=== PATIENT | female | born 1950 | race Caucasian/White ===

== ENCOUNTER 2017-05-13 21:52 | Emergency (ER) | payer OTHER, MEDICAID ==
[~2017-05-13] VITALS: Ht 154.9 cm; Wt 68.0 kg
[2017-05-13 21:52] VITALS: BP_SYST 118
[~2017-05-13 21:52] MED LIST: ASPI81TA2 PO; FOLIC ACID PO; LEVO150T11 PO; LOVA40TA75 PO; MECL-110 PO; ROPI0.5T2 PO; SULFAMETH PO; TRIMETHOPRIM PO; [UNRECOGNIZED DRUG - CODE] PO
[2017-05-13] MEDS ORDERED: DIPHENHYDRAMINE HCL 12.5 MG/5 ML UDC PO ONE (23:00)
[2017-05-13 23:33] VITALS: BP_SYST 118
== END 2017-05-13 23:33 | disposition home or self-care (01) ==
LOC: SED 21:52
DX: T80.62XA Other serum reaction due to vaccination, initial encounter (principal); L53.0 Toxic erythema; E78.00 Pure hypercholesterolemia, unspecified; Z86.79 Personal history of other diseases of the circulatory system; Z79.82 Long term (current) use of aspirin; Z88.0 Allergy status to penicillin; Z88.5 Allergy status to narcotic agent
CPT/HCPCS: 99283

== ENCOUNTER 2018-01-16 15:16 | Outpatient (CLI) | payer OTHER, MEDICAID | END 2018-01-16 20:43 | disposition home or self-care (01) | LOC: SMA 15:16 | PROVIDERS: ATTEND Internal Medicine | DX: Z12.31 Encounter for screening mammogram for malignant neoplasm of breast (principal); E78.5 Hyperlipidemia, unspecified; E03.9 Hypothyroidism, unspecified | CPT/HCPCS: 77067 ==

== ENCOUNTER 2018-03-09 09:08 | Outpatient (CLI) | payer OTHER, MEDICAID ==
[~2018-03-09 09:08] MED LIST changes: +ASPI-1155 PO; -ASPI81TA2 PO; +PHEN-880 PO; -[UNRECOGNIZED DRUG - CODE] PO
== END 2018-03-09 20:36 | disposition home or self-care (01) ==
LOC: SUS 09:08
PROVIDERS: ATTEND Internal Medicine
DX: R92.8 Other abnormal and inconclusive findings on diagnostic imaging of breast (principal)
CPT/HCPCS: 76641

== ENCOUNTER 2019-01-18 09:20 | Outpatient (CLI) | payer OTHER, MEDICAID ==
[~2019-01-18 09:20] MED LIST changes: +PHEN-801 PO; -PHEN-880 PO
== END 2019-01-18 20:53 | disposition home or self-care (01) ==
LOC: SMA 09:20
PROVIDERS: ATTEND Internal Medicine
DX: Z12.31 Encounter for screening mammogram for malignant neoplasm of breast (principal)
CPT/HCPCS: 77067

== ENCOUNTER 2019-08-06 11:26 | Emergency (ER) | payer OTHER, MEDICAID ==
[~2019-08-06] VITALS: Ht 160 cm; Wt 66.2 kg
[2019-08-06 11:26] VITALS: BP_SYST 110
--- NOTE | 2019-08-06 11:30 | NUR ---
Patient triaged and placed in waiting room. VSS and patient appears in no acute distress at this time. Accompanied by SELF, awaiting available bed, and MD notified of need for MSE.
--- NOTE | 2019-08-06 12:24 | NUR ---
BROUGHT BACK TO BED #5 AND REPORT GIVEN TO JULIAN
--- NOTE | 2019-08-06 12:30 | NUR ---
pt arrives from home. States she was dx w/ PNA 2 days and is taking prescribed meds, however, has not seen any improvement. Pt is currently afebrile
--- NOTE | 2019-08-06 12:41 | NUR ---
flu collected and sent to the lab
--- NOTE | 2019-08-06 12:45 | NUR ---
ABBIE Johansen at bedside examining patient.
[2019-08-06] MEDS ORDERED: NACL 0.9% 1,000 ML IV ONE (13:00)
[2019-08-06] MEDS ORDERED: KETOROLAC TROMETHAMINE 30 MG VIAL IVP ONE (13:00)
[2019-08-06] MEDS ORDERED: IPRATROPIUM/ALBUTEROL SULFATE 3 ML AMPUL.NEB (DUONEB) INH ONE (13:00)
[2019-08-06 13:15] LABS: BASOPHILS % (AUTO) 0.3 % (0.0-2.0); EOSINOPHILS # (AUTO) 0.1 K/uL (0.0-0.4); EOSINOPHILS % (AUTO) 1.1 % (0.0-4.0); HEMATOCRIT 34.9 % (36-48); HEMOGLOBIN 12.1 g/dL (12.0-16.0); LYMPHOCYTES # (AUTO) 1.6 K/uL (1.0-5.5); LYMPHOCYTES % (AUTO) 16.9 % (20.5-51.5); MEAN CORPUSCULAR HEMOGLOBIN 35 pg (27-31); MEAN CORPUSCULAR HGB CONC 35 % (32-36); MEAN CORPUSCULAR VOLUME 101 fL (79.0-98.0); MONOCYTES # (AUTO) 0.9 K/uL (0.0-1.0); MONOCYTES % (AUTO) 9.4 % (1.7-9.3); NEUTROPHILS # (AUTO) 6.7 K/uL (1.8-7.7); NEUTROPHILS % (AUTO) 72.3 % (40.0-70.0); PLATELET COUNT (AUTO) 192 K/uL (130-430); RED BLOOD CELL COUNT(AUTO) 3.46 MIL/uL (4.2-6.2); RED CELL DISTRIBUTION WIDTH 12.6 % (9.0-15.0); WHITE BLOOD COUNT (AUTO) 9.3 K/uL (4.8-10.8)
[2019-08-06 13:30] LABS: CALCIUM 8.8 mg/dL (8.4-11.0); CREATININE 0.79 mg/dL (0.55-1.30); POTASSIUM 3.2 mmol/L (3.5-5.1)
--- NOTE | 2019-08-06 13:30 | NUR ---
RESTING COMFORTABLY IN BED ON MONITOR, TOLERABLE PAIN LEVEL OF 2. PT VSS NO COMPLAINTS AT THIS TIME
[2019-08-06 13:32] LABS: BILIRUBIN,URINE NEGATIVE (NEGATIVE); BLOOD, URINE NEGATIVE (NEGATIVE); CLARITY/URINE CLEAR (CLEAR); COLOR,URINE YELLOW (YELLOW); GLUCOSE,URINE NEGATIVE (NEGATIVE); KETONES,URINE NEGATIVE (NEGATIVE); LEUKOCYTE ESTERASE ,URINE TRACE (NEGATIVE); NITRITE, URINE NEGATIVE (NEGATIVE); PROTEIN URINE NEGATIVE (NEGATIVE); UROBILINOGEN,URINE 0.2 (0.2-1.0)
[2019-08-06 13:39] LABS: BACTERIA,URINE FEW /HPF (None Seen); RBC,URINE 0-3 /HPF (0-3)
[2019-08-06 13:45] LABS: ALBUMIN 3.1 g/dL (3.4-4.8); TOTAL BILIRUBIN 0.3 mg/dL (0.0-1.0)
[2019-08-06] MEDS ORDERED: OSELTAMIVIR PHOSPHATE 75 MG CAPSULE PO ONE (14:00)
[2019-08-06] MEDS ORDERED: POTASSIUM CHLORIDE 20 MEQ TAB.PRT.SR PO ONE (14:00)
--- NOTE | 2019-08-06 14:55 | NUR ---
Patient given written and verbal discharge instructions and verbalizes understanding. ER MD discussed with patient the results and treatment provided. Patient in stable condition. ID arm band removed. IV catheter removed intact and dressing applied, no active bleeding. Rx of IBUPROFEN AND TAMIFLU given. Patient educated on pain management and to follow up with PMD. Pain Scale 2/10 TOLERABLE. Opportunity for questions provided and answered. Medication side effect fact sheet provided.
[2019-08-06 15:06] VITALS: BP_SYST 113
== END 2019-08-06 14:55 | disposition home or self-care (01) ==
LOC: SED 11:26
DX: J10.1 Influenza due to other identified influenza virus with other respiratory manifestations (principal); I10 Essential (primary) hypertension; E07.9 Disorder of thyroid, unspecified; E78.00 Pure hypercholesterolemia, unspecified; R42 Dizziness and giddiness; Z90.710 Acquired absence of both cervix and uterus; Z86.73 Personal history of transient ischemic attack (TIA), and cerebral infarction without residual deficits; Z79.82 Long term (current) use of aspirin; Z79.899 Other long term (current) drug therapy; Z88.0 Allergy status to penicillin; Z88.6 Allergy status to analgesic agent
CPT/HCPCS: 36415; 71046; 80053; 81000; 83605; 85025; 86710; 87040; 87086; 94640; 96374; 99284; G9035; J1885; J7030; J7620

== ENCOUNTER 2019-08-16 12:26 | Outpatient (CLI) | payer OTHER, MEDICAID | END 2019-08-16 21:23 | disposition home or self-care (01) | LOC: SRD 12:26 | PROVIDERS: ATTEND Internal Medicine | DX: M25.562 Pain in left knee (principal); Z98.890 Other specified postprocedural states | CPT/HCPCS: 73564 ==

== ENCOUNTER 2019-12-17 13:30 | Emergency (ER) | payer OTHER, MEDICAID ==
[~2019-12-17] VITALS: Ht 160 cm; Wt 75.3 kg
[2019-12-17 13:30] VITALS: BP_SYST 131
--- NOTE | 2019-12-17 13:30 | NUR ---
BROUGHT BACK TO BED #4 AND TRIAGED. REPORT GIVEN TO KEN
--- NOTE | 2019-12-17 13:49 | NUR ---
Pt came to ER for MATHEWS rates pain 02/27. [facility]ing in [facility] VSS no distress at this time awaiting
--- NOTE | 2019-12-17 13:53 | NUR ---
ER at bedside examining patient.
[2019-12-17] MEDS ORDERED: KETOROLAC TROMETHAMINE 60 MG/2 ML VIAL IM ONE (14:00)
[2019-12-17] MEDS ORDERED: cefTRIAXone 1 GM VIAL IM ONE (14:00)
--- NOTE | 2019-12-17 14:00 | NUR ---
Pt pain reduced after medication
[2019-12-17 14:38] VITALS: BP_SYST 131
--- NOTE | 2019-12-17 14:39 | NUR ---
Patient given written and verbal discharge instructions and verbalizes understanding. ER MD discussed with patient the results and treatment provided. Patient in stable condition. ID arm band removed. Rx of Naprosyn and Levaquin given. Patient educated on pain management and to follow up with PMD. Pain Scale 0/10. Opportunity for questions provided and answered. Medication side effect fact sheet provided.
== END 2019-12-17 14:39 | disposition home or self-care (01) ==
LOC: SED 13:30
DX: J01.10 Acute frontal sinusitis, unspecified (principal); E78.00 Pure hypercholesterolemia, unspecified; I10 Essential (primary) hypertension; E07.9 Disorder of thyroid, unspecified; Z86.73 Personal history of transient ischemic attack (TIA), and cerebral infarction without residual deficits; Z79.82 Long term (current) use of aspirin; Z79.899 Other long term (current) drug therapy; Z88.0 Allergy status to penicillin; Z88.5 Allergy status to narcotic agent; Z88.6 Allergy status to analgesic agent
CPT/HCPCS: 96372; 99284; J0696; J1885

== ENCOUNTER 2020-12-19 10:00 | Outpatient (CLI) | payer OTHER, MEDICAID ==
[~2020-12-19 10:00] MED LIST changes: -MECL-110 PO; +MECL-160 PO; -ROPI0.5T2 PO; +ROPI0.5T4 PO
== END 2020-12-19 20:37 | disposition home or self-care (01) ==
LOC: SMA 10:00
PROVIDERS: ATTEND Internal Medicine
DX: Z12.31 Encounter for screening mammogram for malignant neoplasm of breast (principal)
CPT/HCPCS: 77067

== ENCOUNTER 2021-10-22 08:27 | Emergency (ER) | payer OTHER, MEDICAID ==
[~2021-10-22] VITALS: Ht 160 cm; Wt 68.0 kg
[2021-10-22 09:56] LABS: BILIRUBIN,URINE NEGATIVE (NEGATIVE); BLOOD, URINE NEGATIVE (NEGATIVE); CLARITY/URINE CLEAR (CLEAR); COLOR,URINE YELLOW (YELLOW); GLUCOSE,URINE NEGATIVE (NEGATIVE); KETONES,URINE NEGATIVE (NEGATIVE); LEUKOCYTE ESTERASE ,URINE NEGATIVE (NEGATIVE); NITRITE, URINE NEGATIVE (NEGATIVE); PROTEIN URINE NEGATIVE (NEGATIVE); UROBILINOGEN,URINE 0.2 (0.2-1.0)
[2021-10-22 10:00] VITALS: BP_SYST 133
[2021-10-22 10:10] LABS: BASOPHILS % (AUTO) 0.6 % (0.0-2.0); EOSINOPHILS # (AUTO) 0.1 K/uL (0.0-0.4); HEMATOCRIT 37.3 % (36-48); HEMOGLOBIN 12.4 g/dL (12.0-16.0); LYMPHOCYTES # (AUTO) 1.2 K/uL (1.0-5.5); LYMPHOCYTES % (AUTO) 25.1 % (20.5-51.5); MEAN CORPUSCULAR HEMOGLOBIN 33 pg (27-31); MEAN CORPUSCULAR HGB CONC 33 % (32-36); MEAN CORPUSCULAR VOLUME 98 fL (79.0-98.0); MONOCYTES # (AUTO) 0.6 K/uL (0.0-1.0); MONOCYTES % (AUTO) 12.8 % (1.7-9.3); NEUTROPHILS # (AUTO) 2.9 K/uL (1.8-7.7); NEUTROPHILS % (AUTO) 59.5 % (40.0-70.0); PLATELET COUNT (AUTO) 186 K/uL (130-430); RED BLOOD CELL COUNT(AUTO) 3.82 MIL/uL (4.2-6.2); RED CELL DISTRIBUTION WIDTH 12.3 % (9.0-15.0); WHITE BLOOD COUNT (AUTO) 4.8 K/uL (4.8-10.8)
[2021-10-22 10:40] LABS: ANION GAP 6 (5-15); CALCIUM 9.3 mg/dL (8.4-11.0); CHLORIDE 104 mmol/L (98-107); CREATININE 0.68 mg/dL (0.55-1.30); GLUCOSE 95 mg/dL (70-99); SODIUM SERUM 139 mmol/L (136-145); UREA NITROGEN, BLOOD 14 mg/dL (8-21)
[2021-10-22 10:53] LABS: ALANINE AMINOTRANSFERASE 15 U/L (12-78); ALBUMIN 3.3 g/dL (3.4-4.8); AMYLASE 169 U/L (0-100); ASPARTATE AMINOTRANSFERASE 18 U/L (10-37); LACTATE DEHYDROGENASE 159 U/L (81-234); LIPASE 186 U/L (73-393); TOTAL BILIRUBIN 0.2 mg/dL (0.0-1.0)
[2021-10-22 11:09] LABS: C-REACTIVE PROTEIN QUANT 1.6 mg/dL (0-0.5)
[2021-10-22] MEDS ORDERED: OMEP20CA15 PO (11:55)
[2021-10-22 12:23] VITALS: BP_SYST 144
== END 2021-10-22 12:23 | disposition home or self-care (01) ==
LOC: SED 08:27
DX: K29.70 Gastritis, unspecified, without bleeding (principal); I10 Essential (primary) hypertension; E78.00 Pure hypercholesterolemia, unspecified; Z88.5 Allergy status to narcotic agent; Z88.0 Allergy status to penicillin; Z79.899 Other long term (current) drug therapy
CPT/HCPCS: 36415; 76376; 80053; 81003; 82150; 83605; 83615; 83690; 84484; 85025; 86140; 99284

== ENCOUNTER 2022-04-30 11:09 | Outpatient (CLI) | payer OTHER, MEDICAID ==
[~2022-04-30 11:09] MED LIST changes: +OMEP20CA15 PO
== END 2022-04-30 19:17 | disposition home or self-care (01) ==
LOC: SMA 11:09
PROVIDERS: ATTEND Internal Medicine
DX: Z12.31 Encounter for screening mammogram for malignant neoplasm of breast (principal); N63.21 Unspecified lump in the left breast, upper outer quadrant
CPT/HCPCS: 77067

== ENCOUNTER 2022-05-30 13:47 | Outpatient (CLI) | payer OTHER, MEDICAID | END 2022-05-30 18:58 | disposition home or self-care (01) | LOC: SMA 13:47 | PROVIDERS: ATTEND Internal Medicine | DX: R92.2 Inconclusive mammogram (principal); N64.89 Other specified disorders of breast | CPT/HCPCS: 76642; 77066 ==

== ENCOUNTER 2022-12-06 09:36 | Outpatient (CLI) | payer OTHER, MEDICAID | END 2022-12-06 19:13 | disposition home or self-care (01) | LOC: SUS 09:36 | PROVIDERS: ATTEND Internal Medicine | DX: R92.2 Inconclusive mammogram (principal) | CPT/HCPCS: 76642 ==

== ENCOUNTER 2023-02-12 03:36 | Emergency (ER) | payer OTHER, MEDICAID ==
[~2023-02-12] VITALS: Ht 167.6 cm; Wt 83.9 kg
[2023-02-12 03:53] VITALS: BP_SYST 133; RESP 18; TEMP 98.4
[2023-02-12] MEDS ORDERED: MINERAL OIL 133 ML ENEMA RC ONE (04:45)
[2023-02-12] MEDS ORDERED: SODIUM PHOSPHATE,MONO-DIBASIC 133 ML ENEMA RC ONE ×2 (04:45→05:30)
[2023-02-12] MEDS ORDERED: MILK OF MAGNESIA 30 ML UDC PO ONE (05:30)
[2023-02-12] MEDS ORDERED: MAGN296S8 PO (05:46)
[2023-02-12] MEDS ORDERED: SENN8.6T19 PO (05:46)
[2023-02-12] MEDS ORDERED: POLY119P2 PO (05:46)
[2023-02-12 06:53] VITALS: BP_SYST 133; RESP 18; TEMP 98.4
== END 2023-02-12 06:20 | disposition home or self-care (01) ==
LOC: SED 03:36
DX: K59.00 Constipation, unspecified (principal); R10.84 Generalized abdominal pain; R11.0 Nausea; I10 Essential (primary) hypertension; Z88.0 Allergy status to penicillin; Z88.5 Allergy status to narcotic agent; Z79.899 Other long term (current) drug therapy
CPT/HCPCS: 74021; 99283

== ENCOUNTER 2023-06-06 15:00 | Inpatient (IN) | payer OTHER, MEDICAID ==
[~2023-06-06] VITALS: Ht 157.5 cm; Wt 68.5 kg
[~2023-06-06 15:00] MED LIST changes: +MAGN296S8 PO; -MECL-160 PO; +MECL-292 PO; +POLY119P2 PO; +ROPI0.5T37 PO; -ROPI0.5T4 PO; +SENN8.6T19 PO
[2023-06-06 15:48] VITALS: BP_SYST 128; PULSE 68; RESP 16; TEMP 97; O2SAT 98
[2023-06-06] MEDS ORDERED: KETOROLAC TROMETHAMINE 15 MG VIAL IM ONE (19:00)
[2023-06-06 19:53] LABS: BASOPHILS % (AUTO) 0.4 % (0.0-2.0); EOSINOPHILS # (AUTO) 0.2 K/uL (0.0-0.4); EOSINOPHILS % (AUTO) 2.9 % (0.0-4.0); HEMATOCRIT 40.6 % (36-48); HEMOGLOBIN 13.3 g/dL (12.0-16.0); LYMPHOCYTES # (AUTO) 1.5 K/uL (1.0-5.5); LYMPHOCYTES % (AUTO) 26.2 % (20.5-51.5); MEAN CORPUSCULAR HEMOGLOBIN 34 pg (27-31); MEAN CORPUSCULAR HGB CONC 33 % (32-36); MEAN CORPUSCULAR VOLUME 102 fL (79.0-98.0); MONOCYTES # (AUTO) 0.6 K/uL (0.0-1.0); MONOCYTES % (AUTO) 10.9 % (1.7-9.3); NEUTROPHILS # (AUTO) 3.4 K/uL (1.8-7.7); NEUTROPHILS % (AUTO) 59.6 % (40.0-70.0); PLATELET COUNT (AUTO) 229 K/uL (130-430); RED BLOOD CELL COUNT(AUTO) 3.98 MIL/uL (4.2-6.2); RED CELL DISTRIBUTION WIDTH 12.6 % (9.0-15.0); WHITE BLOOD COUNT (AUTO) 5.8 K/uL (4.8-10.8)
[2023-06-06 20:25] LABS: ALANINE AMINOTRANSFERASE 35 U/L (12-78); ALBUMIN 3.5 g/dL (3.4-4.8); ANION GAP 5 (5-15); ASPARTATE AMINOTRANSFERASE 23 U/L (10-37); BILIRUBIN,DIRECT 0.1 mg/dL (0.0-0.3); CALCIUM 9.4 mg/dL (8.4-11.0); CARBON DIOXIDE 30 mmol/L (23-29); CHLORIDE 104 mmol/L (98-107); CREATININE 0.56 mg/dL (0.55-1.30); GLUCOSE 116 mg/dL (74-106); LIPASE 70 U/L (16-77); POTASSIUM 3.5 mmol/L (3.5-5.1); SODIUM SERUM 139 mmol/L (136-145); TOTAL BILIRUBIN 0.2 mg/dL (0.0-1.0); TOTAL PROTEIN, SERUM 7.4 g/dL (6.4-8.3); UREA NITROGEN, BLOOD 13 mg/dL (8-21)
[2023-06-06 23:18] LABS: BILIRUBIN,URINE NEGATIVE (NEGATIVE); BLOOD, URINE NEGATIVE (NEGATIVE); CLARITY/URINE CLEAR (CLEAR); COLOR,URINE YELLOW (YELLOW); GLUCOSE,URINE NEGATIVE (NEGATIVE); KETONES,URINE NEGATIVE (NEGATIVE); LEUKOCYTE ESTERASE ,URINE NEGATIVE (NEGATIVE); NITRITE, URINE NEGATIVE (NEGATIVE); PROTEIN URINE NEGATIVE (NEGATIVE); UROBILINOGEN,URINE 0.2 (0.2-1.0)
[2023-06-07] MEDS ORDERED: KETOROLAC TROMETHAMINE 15 MG VIAL ONE (00:10)
[2023-06-07] MEDS ORDERED: ASPIRIN 81 MG TAB.CHEW PO ONE (03:15)
[2023-06-07] MEDS ORDERED: LISINOPRIL 10 MG TABLET (PRINIVIL) PO ONE (03:15)
[2023-06-07] MEDS ORDERED: NITROGLYCERIN 0.4 MG TAB.SUBL SL ONE (03:15)
[2023-06-07 04:59] VITALS: BP_SYST 118; PULSE 72; RESP 18; TEMP 98
[2023-06-07 05:17] VITALS: O2SAT 96
[2023-06-07 08:00] VITALS: BP_SYST 134; PULSE 62; RESP 16; TEMP 97; O2SAT 97
[2023-06-07] MEDS ORDERED: ATORVASTATIN 20 MG TABLET PO ONE (10:00)
[2023-06-07 11:17] VITALS: O2SAT 97
[2023-06-07 12:00] VITALS: BP_SYST 127; PULSE 79; RESP 16; TEMP 97.1; O2SAT 95
[2023-06-07 13:49] VITALS: BP_SYST 127; PULSE 79; RESP 16; TEMP 97.1; O2SAT 95
[2023-06-08] MEDS ORDERED: lisinopriL 20 MG TABLET PO SCH (09:00)
[2023-06-08] MEDS ORDERED: ATORVASTATIN 20 MG TABLET PO SCH (09:00)
[2023-06-08] MEDS ORDERED: ASPIRIN 81 MG TAB.CHEW PO SCH (09:00)
== END 2023-06-07 14:45 | disposition home or self-care (01) | DRG 206 ==
LOC: SED 15:00 → STU 06-07 03:11
PROVIDERS: ADMIT Family Medicine; ATTEND Family Medicine
DX: M94.0 Chondrocostal junction syndrome [Tietze] (principal); I10 Essential (primary) hypertension; R10.9 Unspecified abdominal pain; E78.00 Pure hypercholesterolemia, unspecified; E03.9 Hypothyroidism, unspecified; M06.9 Rheumatoid arthritis, unspecified; Z88.0 Allergy status to penicillin; Z88.5 Allergy status to narcotic agent; Z90.710 Acquired absence of both cervix and uterus; I25.2 Old myocardial infarction
CPT/HCPCS: 36415; 71045; 76376; 80048; 80076; 81001; 81003; 83690; 84484; 85025; 93005; 93306; 96372; 99285; G0378; J1885

== ENCOUNTER 2023-08-01 10:26 | Emergency (ER) | payer OTHER, MEDICAID ==
[~2023-08-01] VITALS: Ht 157.5 cm; Wt 68.5 kg
[2023-08-01 10:31] VITALS: BP_SYST 123; PULSE 66; RESP 18; TEMP 98.3; O2SAT 99
[2023-08-01] MEDS ORDERED: DIPHENHYDRAMINE HCL 50 MG CAPSULE PO ONE (11:00)
[2023-08-01 11:49] LABS: BILIRUBIN,URINE NEGATIVE (NEGATIVE); BLOOD, URINE NEGATIVE (NEGATIVE); CLARITY/URINE CLEAR (CLEAR); COLOR,URINE YELLOW (YELLOW); GLUCOSE,URINE NEGATIVE (NEGATIVE); KETONES,URINE NEGATIVE (NEGATIVE); LEUKOCYTE ESTERASE ,URINE TRACE (NEGATIVE); NITRITE, URINE POSITIVE (NEGATIVE); PH,URINE 6.5 (5.0-8.0); PROTEIN URINE NEGATIVE (NEGATIVE); UROBILINOGEN,URINE 0.2 (0.2-1.0)
[2023-08-01 12:07] LABS: BACTERIA,URINE MANY /HPF (None Seen); RBC,URINE NONE SEEN /HPF (0-3); WBC,URINE 0-3 /HPF (0-3)
[2023-08-01] MEDS ORDERED: BEN50 PO (12:19)
[2023-08-01 12:45] VITALS: BP_SYST 123; PULSE 66; RESP 18; TEMP 98.3; O2SAT 99
== END 2023-08-01 12:30 | disposition home or self-care (01) ==
LOC: SED 10:26
DX: R21 Rash and other nonspecific skin eruption (principal); N39.0 Urinary tract infection, site not specified; I10 Essential (primary) hypertension; Z88.0 Allergy status to penicillin; Z88.5 Allergy status to narcotic agent; Z79.899 Other long term (current) drug therapy
CPT/HCPCS: 99283; 81001; 87086; 81000; 81015; Q0163

== ENCOUNTER 2023-09-14 13:35 | Emergency (ER) | payer OTHER, MEDICAID ==
[~2023-09-14] VITALS: Ht 162.6 cm; Wt 65.8 kg
[~2023-09-14 13:35] MED LIST changes: +BEN50 PO
[2023-09-14 13:40] VITALS: BP_SYST 108; PULSE 77; RESP 19; TEMP 97.7; O2SAT 96
[2023-09-14 14:50] LABS: BASOPHILS % (AUTO) 0.4 % (0.0-2.0); EOSINOPHILS % (AUTO) 0.7 % (0.0-4.0); HEMATOCRIT 35.2 % (36-48); LYMPHOCYTES # (AUTO) 1.2 K/uL (1.0-5.5); LYMPHOCYTES % (AUTO) 18.3 % (20.5-51.5); MEAN CORPUSCULAR HEMOGLOBIN 33 pg (27-31); MEAN CORPUSCULAR HGB CONC 34 % (32-36); MEAN CORPUSCULAR VOLUME 97 fL (79.0-98.0); MONOCYTES % (AUTO) 16.5 % (1.7-9.3); NEUTROPHILS # (AUTO) 4.1 K/uL (1.8-7.7); NEUTROPHILS % (AUTO) 64.1 % (40.0-70.0); PLATELET COUNT (AUTO) 198 K/uL (130-430); RED BLOOD CELL COUNT(AUTO) 3.63 MIL/uL (4.2-6.2); RED CELL DISTRIBUTION WIDTH 12.8 % (9.0-15.0); WHITE BLOOD COUNT (AUTO) 6.4 K/uL (4.8-10.8)
[2023-09-14 14:54] LABS: ANION GAP 6 (5-15); CALCIUM 8.9 mg/dL (8.4-11.0); CARBON DIOXIDE 27 mmol/L (23-29); CHLORIDE 104 mmol/L (98-107); CREATININE 1.04 mg/dL (0.55-1.30); GLUCOSE 105 mg/dL (74-106); POTASSIUM 3.9 mmol/L (3.5-5.1); SODIUM SERUM 137 mmol/L (136-145); UREA NITROGEN, BLOOD 20 mg/dL (8-21)
[2023-09-14 14:59] LABS: ALANINE AMINOTRANSFERASE 49 U/L (12-78); ALBUMIN 2.8 g/dL (3.4-4.8); ASPARTATE AMINOTRANSFERASE 28 U/L (10-37); TOTAL BILIRUBIN 0.3 mg/dL (0.0-1.0); TOTAL PROTEIN, SERUM 6.6 g/dL (6.4-8.3)
[2023-09-14] MEDS ORDERED: ZIT250 PO (15:40)
[2023-09-14 16:08] LABS: BILIRUBIN,URINE NEGATIVE (NEGATIVE); BLOOD, URINE NEGATIVE (NEGATIVE); CLARITY/URINE SL CLOUDY (CLEAR); COLOR,URINE YELLOW (YELLOW); GLUCOSE,URINE NEGATIVE (NEGATIVE); KETONES,URINE NEGATIVE (NEGATIVE); LEUKOCYTE ESTERASE ,URINE 2+ (NEGATIVE); NITRITE, URINE NEGATIVE (NEGATIVE); PROTEIN URINE NEGATIVE (NEGATIVE); UROBILINOGEN,URINE 0.2 (0.2-1.0)
[2023-09-14 16:16] LABS: BACTERIA,URINE MANY /HPF (None Seen); FINE GRANULAR CASTS,URINE 0-10 /LPF (None Seen); RBC,URINE 0-3 /HPF (0-3); WBC,URINE 20-50 /HPF (0-3)
[2023-09-14 16:17] LABS: MUCUS,URINE None Seen /LPF (None Seen)
[2023-09-14] MEDS: AZITHROMYCIN 250 MG TABLET PO ONE (16:32)
[2023-09-14] MEDS ORDERED: NITR-85 PO (16:32)
[2023-09-14] MEDS: NITROFURANTOIN MONOHYD/M-CRYST 100 MG CAPSULE (MacroBID) PO ONE (16:32)
[2023-09-14 17:03] LABS: INFLUENZA TYPE A Negative (NEGATIVE); INFLUENZA TYPE B NEGATIVE (NEGATIVE)
[2023-09-14 17:07] VITALS: BP_SYST 108; PULSE 77; RESP 19; TEMP 97.7; O2SAT 96
== END 2023-09-14 17:07 | disposition home or self-care (01) ==
LOC: SED 13:35
DX: J18.9 Pneumonia, unspecified organism (principal); N39.0 Urinary tract infection, site not specified; R50.9 Fever, unspecified; R11.10 Vomiting, unspecified; I10 Essential (primary) hypertension; Z88.0 Allergy status to penicillin; Z88.5 Allergy status to narcotic agent; Z79.899 Other long term (current) drug therapy; Z20.822 Contact with and (suspected) exposure to COVID-19
CPT/HCPCS: 99284; 71045; 87426; 80053; 81001; 85025; 87086; 36415; 87804 ×2; 81000; 81015; Q0144

== ENCOUNTER 2023-11-12 09:55 | Emergency (ER) | payer OTHER, MEDICAID ==
[~2023-11-12] VITALS: Ht 157.5 cm; Wt 68.0 kg
[~2023-11-12 09:55] MED LIST changes: +NITR-85 PO; +ZIT250 PO
[2023-11-12 10:00] VITALS: BP_SYST 122; PULSE 64; RESP 18; TEMP 98.3; O2SAT 98
[2023-11-12 10:34] LABS: BASOPHILS % (AUTO) 0.5 % (0.0-2.0); EOSINOPHILS # (AUTO) 0.1 K/uL (0.0-0.4); EOSINOPHILS % (AUTO) 2.7 % (0.0-4.0); HEMATOCRIT 40.7 % (36-48); HEMOGLOBIN 13.7 g/dL (12.0-16.0); LYMPHOCYTES # (AUTO) 1.4 K/uL (1.0-5.5); MEAN CORPUSCULAR HEMOGLOBIN 34 pg (27-31); MEAN CORPUSCULAR HGB CONC 34 % (32-36); MEAN CORPUSCULAR VOLUME 101 fL (79.0-98.0); MONOCYTES # (AUTO) 0.4 K/uL (0.0-1.0); MONOCYTES % (AUTO) 8.7 % (1.7-9.3); NEUTROPHILS # (AUTO) 2.7 K/uL (1.8-7.7); NEUTROPHILS % (AUTO) 58.1 % (40.0-70.0); PLATELET COUNT (AUTO) 175 K/uL (130-430); RED BLOOD CELL COUNT(AUTO) 4.02 MIL/uL (4.2-6.2); RED CELL DISTRIBUTION WIDTH 16.2 % (9.0-15.0); WHITE BLOOD COUNT (AUTO) 4.6 K/uL (4.8-10.8)
[2023-11-12 10:47] LABS: ANION GAP 7 (5-15); CALCIUM 8.7 mg/dL (8.4-11.0); CARBON DIOXIDE 27 mmol/L (23-29); CHLORIDE 105 mmol/L (98-107); CREATININE 0.71 mg/dL (0.55-1.30); GLUCOSE 91 mg/dL (74-106); POTASSIUM 3.8 mmol/L (3.5-5.1); SODIUM SERUM 139 mmol/L (136-145); UREA NITROGEN, BLOOD 10 mg/dL (8-21)
[2023-11-12] MEDS: NACL 0.9% 1,000 ML IV ONE (10:55)
[2023-11-12 12:12] VITALS: BP_SYST 128; PULSE 74; RESP 19; TEMP 98.3; O2SAT 99
[2023-11-13] MEDS ORDERED: GABAPENTIN (00:45)
[2023-11-13] MEDS ORDERED: LEVO112T5 PO (00:45)
[2023-11-13] MEDS ORDERED: ATOR10TA68 PO (00:45)
[2023-11-13] MEDS ORDERED: MIRA50TA PO (00:45)
[2023-11-13] MEDS ORDERED: ALEN70TA27 PO (00:55)
[2023-11-13] MEDS ORDERED: FOLI-43 PO (00:55)
[2023-11-13] MEDS ORDERED: HYDR200T38 PO (00:55)
[2023-11-13] MEDS ORDERED: CEVIMELINE (00:55)
== END 2023-11-12 12:13 | disposition home or self-care (01) ==
LOC: SED 09:55
DX: R42 Dizziness and giddiness (principal); T37.8X5A Adverse effect of other specified systemic anti-infectives and antiparasitics, initial encounter; I10 Essential (primary) hypertension; E07.9 Disorder of thyroid, unspecified; M19.90 Unspecified osteoarthritis, unspecified site; E78.00 Pure hypercholesterolemia, unspecified; Z88.0 Allergy status to penicillin; Z88.5 Allergy status to narcotic agent; Y92.89 Other specified places as the place of occurrence of the external cause
CPT/HCPCS: 99284; 96360; 70450; 80048; 85025; 36415; J7030

== ENCOUNTER 2023-11-12 20:00 | Inpatient (IN) | payer OTHER, MEDICAID ==
[~2023-11-12] VITALS: Ht 157.5 cm; Wt 68.0 kg
[2023-11-12 20:08] VITALS: BP_SYST 149; PULSE 70; RESP 20; TEMP 98.1; O2SAT 96
[2023-11-12] MEDS: MECLIZINE HCL 25 MG TABLET (ANITVERT) PO ONE (20:31)
[2023-11-12] MEDS: METOCLOPRAMIDE HCL 10 MG/2 ML VIAL IVP ONE (20:33)
[2023-11-12] MEDS: LORazepam 2 MG/ML VIAL IVP ONE (20:34)
[2023-11-12] MEDS: NACL 0.9% 1,000 ML IV ONE (20:36)
[2023-11-12 21:48] LABS: BASOPHILS % (AUTO) 0.3 % (0.0-2.0); EOSINOPHILS # (AUTO) 0.1 K/uL (0.0-0.4); EOSINOPHILS % (AUTO) 0.7 % (0.0-4.0); HEMATOCRIT 38.8 % (36-48); HEMOGLOBIN 13.2 g/dL (12.0-16.0); LYMPHOCYTES # (AUTO) 0.8 K/uL (1.0-5.5); MEAN CORPUSCULAR HEMOGLOBIN 34 pg (27-31); MEAN CORPUSCULAR HGB CONC 34 % (32-36); MEAN CORPUSCULAR VOLUME 100 fL (79.0-98.0); MONOCYTES # (AUTO) 0.5 K/uL (0.0-1.0); NEUTROPHILS # (AUTO) 6.2 K/uL (1.8-7.7); PLATELET COUNT (AUTO) 145 K/uL (130-430); RED BLOOD CELL COUNT(AUTO) 3.87 MIL/uL (4.2-6.2); RED CELL DISTRIBUTION WIDTH 15.7 % (9.0-15.0); WHITE BLOOD COUNT (AUTO) 7.7 K/uL (4.8-10.8)
[2023-11-12 22:27] LABS: ALANINE AMINOTRANSFERASE 23 U/L (12-78); ALBUMIN 3.5 g/dL (3.4-4.8); ANION GAP 8 (5-15); ASPARTATE AMINOTRANSFERASE 23 U/L (10-37); CALCIUM 8.3 mg/dL (8.4-11.0); CARBON DIOXIDE 25 mmol/L (23-29); CHLORIDE 107 mmol/L (98-107); GLUCOSE 91 mg/dL (74-106); POTASSIUM 3.3 mmol/L (3.5-5.1); SODIUM SERUM 140 mmol/L (136-145); TOTAL BILIRUBIN 0.3 mg/dL (0.0-1.0); TOTAL PROTEIN, SERUM 7.1 g/dL (6.4-8.3); UREA NITROGEN, BLOOD 18 mg/dL (8-21)
[2023-11-12 22:30] LABS: BILIRUBIN,DIRECT 0.1 mg/dL (0.0-0.3)
[2023-11-12] MEDS ORDERED: iohexoL 350 mgI/mL, 100 ML INFUS..BTL IV ONE (22:50)
[2023-11-12 22:54] LABS: BILIRUBIN,URINE NEGATIVE (NEGATIVE); BLOOD, URINE NEGATIVE (NEGATIVE); CLARITY/URINE CLEAR (CLEAR); COLOR,URINE YELLOW (YELLOW); GLUCOSE,URINE NEGATIVE (NEGATIVE); KETONES,URINE 1+ (NEGATIVE); LEUKOCYTE ESTERASE ,URINE NEGATIVE (NEGATIVE); NITRITE, URINE NEGATIVE (NEGATIVE); PH,URINE 7.5 (5.0-8.0); PROTEIN URINE NEGATIVE (NEGATIVE); UROBILINOGEN,URINE 0.2 (0.2-1.0)
[2023-11-13] MEDS ORDERED: ATOR10TA68 PO (00:45)
[2023-11-13] MEDS ORDERED: LEVO112T5 PO (00:45)
[2023-11-13] MEDS ORDERED: MIRA50TA PO (00:45)
[2023-11-13] MEDS ORDERED: GABAPENTIN (00:45)
[2023-11-13] MEDS ORDERED: ALEN70TA27 PO (00:55)
[2023-11-13] MEDS ORDERED: HYDR200T38 PO (00:55)
[2023-11-13] MEDS ORDERED: FOLI-43 PO (00:55)
[2023-11-13] MEDS ORDERED: CEVIMELINE (00:55)
[2023-11-13] MEDS: MECLIZINE HCL 25 MG TABLET (ANITVERT) PO SCH (01:14)
[2023-11-13 02:01] VITALS: BP_SYST 123; PULSE 73; RESP 18; TEMP 97.8; O2SAT 96
[2023-11-13 08:00] VITALS: BP_SYST 104; BP_SYST 140; PULSE 73; RESP 18; TEMP 97.2; O2SAT 95
[2023-11-13 12:06] VITALS: BP_SYST 132; PULSE 72; RESP 20; TEMP 97.4; O2SAT 97
[2023-11-13 16:09] VITALS: BP_SYST 136; PULSE 70; RESP 19; TEMP 97.3; O2SAT 97
[2023-11-13] MEDS ORDERED: HYDROcodone/ACETAMIN 5-325 MG TAB (NORCO/ VICODIN) PO PRN (18:15)
[2023-11-13] MEDS ORDERED: ACETAMINOPHEN 500 MG TABLET PO PRN (18:15)
[2023-11-13 20:00] VITALS: BP_SYST 120; PULSE 72; RESP 18; TEMP 97.7; O2SAT 95
[2023-11-14] VITALS: BP_SYST 128; PULSE 69; RESP 18; TEMP 98.1; O2SAT 96
[2023-11-14] MEDS: LEVOTHYROXINE SODIUM 0.112 MG TABLET PO SCH (06:17)
[2023-11-14 06:40] LABS: EOSINOPHILS # (AUTO) 0.3 K/uL (0.0-0.4); EOSINOPHILS % (AUTO) 7.9 % (0.0-4.0); HEMATOCRIT 39.7 % (36-48); HEMOGLOBIN 13.3 g/dL (12.0-16.0); LYMPHOCYTES # (AUTO) 1.3 K/uL (1.0-5.5); LYMPHOCYTES % (AUTO) 35.3 % (20.5-51.5); MEAN CORPUSCULAR HEMOGLOBIN 34 pg (27-31); MEAN CORPUSCULAR HGB CONC 34 % (32-36); MEAN CORPUSCULAR VOLUME 102 fL (79.0-98.0); MONOCYTES # (AUTO) 0.4 K/uL (0.0-1.0); MONOCYTES % (AUTO) 12.1 % (1.7-9.3); NEUTROPHILS # (AUTO) 1.6 K/uL (1.8-7.7); NEUTROPHILS % (AUTO) 43.7 % (40.0-70.0); PLATELET COUNT (AUTO) 185 K/uL (130-430); RED CELL DISTRIBUTION WIDTH 16.1 % (9.0-15.0); WHITE BLOOD COUNT (AUTO) 3.7 K/uL (4.8-10.8)
[2023-11-14 06:53] LABS: ANION GAP 6 (5-15); CALCIUM 8.2 mg/dL (8.4-11.0); CARBON DIOXIDE 26 mmol/L (23-29); CHLORIDE 108 mmol/L (98-107); CREATININE 0.61 mg/dL (0.55-1.30); GLUCOSE 92 mg/dL (74-106); POTASSIUM 3.5 mmol/L (3.5-5.1); SODIUM SERUM 140 mmol/L (136-145); UREA NITROGEN, BLOOD 12 mg/dL (8-21)
[2023-11-14 08:02] VITALS: BP_SYST 110; PULSE 83; RESP 18; TEMP 97.2; O2SAT 97
[2023-11-14 08:07] VITALS: O2SAT 99
[2023-11-14] MEDS: FOLIC ACID 1 MG TABLET PO SCH (09:30)
[2023-11-14] MEDS: ATORVASTATIN 10 MG TABLET PO SCH (09:30)
[2023-11-14] MEDS: ASPIRIN 81 MG TAB.CHEW PO SCH (09:30)
[2023-11-14] MEDS: HYDROXYCHLOROQUINE SULFATE 200 MG TABLET PO SCH (09:35)
[2023-11-14] MEDS: PANTOPRAZOLE SODIUM 40 MG/VIAL (PROTONIX) IVP SCH (09:39)
[2023-11-14 11:03] VITALS: BP_SYST 82; PULSE 65; RESP 16; TEMP 97.1; O2SAT 97
[2023-11-14 12:00] VITALS: BP_SYST 128; PULSE 76; RESP 18; TEMP 98.2; O2SAT 96
[2023-11-14] MEDS ORDERED: MECL-292 PO (12:12)
[2023-11-14] MEDS ORDERED: PRO40 PO (12:12)
[2023-11-14 13:10] VITALS: BP_SYST 128; PULSE 76; RESP 18; TEMP 98.2; O2SAT 96
[2023-11-16] MEDS ORDERED: ALENDRONATE SODIUM 35 MG TABLET PO SCH (06:00)
== END 2023-11-14 15:00 | disposition home health service (06) | DRG 392 ==
LOC: SED 20:00 → SMU 11-13 00:34 → STU 11-13 00:51
PROVIDERS: ADMIT Specialist; ATTEND Specialist
DX: A08.4 Viral intestinal infection, unspecified (principal); E04.1 Nontoxic single thyroid nodule; Z79.899 Other long term (current) drug therapy
CPT/HCPCS: 36415; 70496; 70498; 80048; 80076; 81001; 81003; 84484; 85025; 93005; 96374; 96375; 99285; C9113; G0378; J2060; J2765; J8597; Q9967

== ENCOUNTER 2024-03-14 09:42 | Emergency (ER) | payer OTHER, MEDICAID ==
[~2024-03-14] VITALS: Ht 157.5 cm; Wt 63.5 kg
[~2024-03-14 09:42] MED LIST changes: +ALEN70TA27 PO; +ATOR10TA68 PO; -BEN50 PO; +CEVIMELINE; +FOLI-43 PO; +HYDR200T38 PO; +LEVO112T5 PO; -LEVO150T11 PO; -LOVA40TA75 PO; -MAGN296S8 PO; -NITR-85 PO; -OMEP20CA15 PO; -PHEN-801 PO; -POLY119P2 PO; +PRO40 PO; -ROPI0.5T37 PO; -SENN8.6T19 PO; -SULFAMETH PO; -TRIMETHOPRIM PO; -ZIT250 PO
[2024-03-14 09:56] VITALS: BP_SYST 107; PULSE 66; RESP 17; TEMP 97.6; O2SAT 95
[2024-03-14 10:30] LABS: BASOPHILS % (AUTO) 0.4 % (0.0-2.0); EOSINOPHILS % (AUTO) 0.4 % (0.0-4.0); HEMATOCRIT 38.5 % (36-48); HEMOGLOBIN 13.1 g/dL (12.0-16.0); LYMPHOCYTES # (AUTO) 0.8 K/uL (1.0-5.5); LYMPHOCYTES % (AUTO) 10.4 % (20.5-51.5); MEAN CORPUSCULAR HEMOGLOBIN 34 pg (27-31); MEAN CORPUSCULAR HGB CONC 34 % (32-36); MEAN CORPUSCULAR VOLUME 101 fL (79.0-98.0); MONOCYTES # (AUTO) 0.6 K/uL (0.0-1.0); MONOCYTES % (AUTO) 8.6 % (1.7-9.3); NEUTROPHILS % (AUTO) 80.2 % (40.0-70.0); PLATELET COUNT (AUTO) 196 K/uL (130-430); RED BLOOD CELL COUNT(AUTO) 3.82 MIL/uL (4.2-6.2); RED CELL DISTRIBUTION WIDTH 12.2 % (9.0-15.0); WHITE BLOOD COUNT (AUTO) 7.5 K/uL (4.8-10.8)
[2024-03-14 10:44] LABS: PROTHROMBIN TIME 10.1 SECS (9.5-12.5)
[2024-03-14 10:58] LABS: BILIRUBIN,URINE NEGATIVE (NEGATIVE); BLOOD, URINE 1+ (NEGATIVE); CLARITY/URINE SL CLOUDY (CLEAR); COLOR,URINE YELLOW (YELLOW); GLUCOSE,URINE NEGATIVE (NEGATIVE); KETONES,URINE NEGATIVE (NEGATIVE); LEUKOCYTE ESTERASE ,URINE 3+ (NEGATIVE); NITRITE, URINE NEGATIVE (NEGATIVE); PH,URINE 6.5 (5.0-8.0); PROTEIN URINE NEGATIVE (NEGATIVE); UROBILINOGEN,URINE 0.2 (0.2-1.0)
[2024-03-14 11:13] LABS: ALANINE AMINOTRANSFERASE 18 U/L (12-78); ALBUMIN 3.4 g/dL (3.4-4.8); AMYLASE 101 U/L (0-100); ANION GAP 7 (5-15); ASPARTATE AMINOTRANSFERASE 17 U/L (10-37); BILIRUBIN,DIRECT 0.2 mg/dL (0.0-0.3); CALCIUM 9.3 mg/dL (8.4-11.0); CARBON DIOXIDE 29 mmol/L (23-29); CHLORIDE 103 mmol/L (98-107); CREATININE 0.85 mg/dL (0.55-1.30); GLUCOSE 110 mg/dL (74-106); LIPASE 59 U/L (16-77); POTASSIUM 3.7 mmol/L (3.5-5.1); SODIUM SERUM 139 mmol/L (136-145); TOTAL BILIRUBIN 0.5 mg/dL (0.0-1.0); TOTAL PROTEIN, SERUM 7.1 g/dL (6.4-8.3); UREA NITROGEN, BLOOD 14 mg/dL (8-21)
[2024-03-14 11:14] LABS: BACTERIA,URINE MODERATE /HPF (None Seen); WBC,URINE 20-50 /HPF (0-3)
[2024-03-14] MEDS ORDERED: NITR-85 PO (11:31)
[2024-03-14] MEDS ORDERED: PHEN-726 PO (11:31)
[2024-03-14] MEDS ORDERED: CLOT15CR5 TP (11:48)
[2024-03-14] MEDS: cefTRIAXone 1 GM in LIDOCAINE 1%, 20 ML MDV 2.1 ML IM ONE (11:57)
[2024-03-14 12:18] VITALS: BP_SYST 107; PULSE 66; RESP 17; TEMP 97.6; O2SAT 95
== END 2024-03-14 12:30 | disposition home or self-care (01) ==
LOC: SED 09:42
DX: N39.0 Urinary tract infection, site not specified (principal); R10.30 Lower abdominal pain, unspecified; I10 Essential (primary) hypertension; Z88.5 Allergy status to narcotic agent; Z88.6 Allergy status to analgesic agent; Z88.0 Allergy status to penicillin; Z79.899 Other long term (current) drug therapy; Z79.2 Long term (current) use of antibiotics; Z79.82 Long term (current) use of aspirin
CPT/HCPCS: 99285; 74176; 80076; 80048; 81001; 82150; 83690; 85025; 85610; 85730; 87086; 36415; 96372; 83605; 82397; J0696; 81000; 81015; J2001